=== PATIENT | male | born 1970 | race Caucasian/White ===

== ENCOUNTER → 2018-05-29 | Outpatient (CLI) | payer BC ==
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
== END | disposition home or self-care (01) ==
LOC: DXRAD 09:13
PROVIDERS: ATTEND Physician Assistant Medical
DX: S22.42XA Multiple fractures of ribs, left side, initial encounter for closed fracture (principal); X58.XXXA Exposure to other specified factors, initial encounter; Y93.89 Activity, other specified; Y92.89 Other specified places as the place of occurrence of the external cause; Y99.8 Other external cause status
CPT/HCPCS: 71101

== ENCOUNTER → 2020-06-18 | Outpatient (CLI) | payer BC ==
--- NOTE | 2020-06-18 11:49 | RAD ---
EXAMINATION: HAND RIGHT 3V CLINICAL HISTORY: Reason: RIGHT HAND PAIN / Spl. Instructions: / History: TECHNIQUE: HAND RIGHT 3V Number of Images/Views: 3 COMPARISON: None FINDINGS: Mild degenerative changes first IP, MTP, and CMC joints. Prominent exostosis along the radial aspect of the first distal phalangeal base, possibly due to remote trauma. Question old healed fracture deformity in the mid fourth metacarpal. No acute fracture. No focal soft tissue swelling. IMPRESSION: Mild degenerative changes right thumb as described. Electronically signed by: Sarthak Cano DO (06/18/2020 11:47 AM) [id number]
== END ==
LOC: PMG 10:29
PROVIDERS: ATTEND Physician Assistant Medical
DX: M19.041 Primary osteoarthritis, right hand (principal)
CPT/HCPCS: 73130